=== PATIENT | male | born 1960 | race Caucasian/White ===

== ENCOUNTER → 2016-12-13 12:32 | Outpatient (CLI) | payer MEDICARE, MEDICAID ==
[2016-03-26 08:36] VITALS: BMI 22.5
[~2016-12-13 12:32] MED LIST: CELEXA20 MG PO; GLUCOPHAGE500 MG PO; HYDROCODONE-APA1 TAB PO; LIBRAX CAPSULE1 CAP PO; NEXIUM40 MG PO; PANCREASE PO; PANCREAZE DR 41 EACH PO; PRILOSEC20 MG PO; ULTRAM50 MG PO; ZENPEP DR 5,001 EACH PO; ZOFRAN ODT4 MG/UDTAB PO
== END | disposition home or self-care (01) ==
LOC: D.RAD 09:30 → D.MRI 10:30 → D.RAD 12:32
DX: S43.421A Sprain of right rotator cuff capsule, initial encounter (principal)

== ENCOUNTER → 2016-12-16 16:23 | Outpatient (CLI) | payer MEDICARE, MEDICAID ==
[2016-03-26 08:36] VITALS: BMI 22.5
[2016-12-16 18:10] LABS: HEMOGLOBIN A1C 5.8 % (4.8-6.0)
== END | disposition home or self-care (01) ==
LOC: D.LABREF 16:23
PROVIDERS: Orthopaedic Surgery
DX: M19.011 Primary osteoarthritis, right shoulder (principal); E11.9 Type 2 diabetes mellitus without complications

== ENCOUNTER 2016-12-28 05:17 | Day surgery (SDC) | payer MEDICARE, MEDICAID ==
[2016-03-26 08:36] VITALS: BMI 22.5
[2016-12-27 15:34] LABS: APPEARANCE CLEAR (CLEAR); BILIRUBIN NEGATIVE (NEGATIVE); COLOR DK YELLOW (YELLOW); GLUCOSE NEGATIVE (NEGATIVE); KETONE NEGATIVE (NEGATIVE); LEUKOCYTE ESTERASE NEGATIVE (NEGATIVE); NITRITE NEGATIVE (NEGATIVE); PROTEIN TRACE mg/dL (NEGATIVE); UROBILINOGEN NORMAL (NORMAL)
[2016-12-27 15:39] LABS: HEMATOCRIT 42.3 % (42.0-54.0); HEMOGLOBIN 14.4 g/dL (13.5-17.5); MCH 31.2 pg (26.0-34.0); MCV 91.6 fL (80.0-100.0); MEAN PLATELET VOLUME 10.9 fL (7.4-10.4); PLATELET COUNT 306 10x3/uL (130-400); RBC 4.62 10x6/uL (4.20-6.10); RDW 13.1 % (11.5-14.5); WBC 20.2 10x3/uL (4.8-10.8)
[2016-12-27 15:41] LABS: INR 1.09 (0.85-1.17); PROTIME 13.9 SECONDS (11.6-15.0)
[2016-12-27 15:52] LABS: CALC OSMOLALITY 265 mosm/kg (275-300); CALCIUM 8.3 mg/dL (8.5-10.1); CARBON DIOXIDE 29.9 mmol/L (21.0-32.0); CHLORIDE - SERUM 98 mmol/L (98-107); GLUCOSE 104 mg/dL (74-106); POTASSIUM - SERUM 3.2 mmol/L (3.5-5.1); SODIUM 134 mmol/L (136-145); UREA NITROGEN 8 mg/dL (7-18); eGFR NON AFRICAN AMERICAN 82 mL/min (90-120)
[2016-12-27 16:01] LABS: EOSINOPHILS 2 % (0-7); LYMPHOCYTES 21 % (15-50); MONOCYTES 8 % (2-11); NEUTROPHILS 69 % (40-80); PLATELET ESTIMATE NORMAL
--- NOTE | 2016-12-28 10:23 | NUR ---
DR HAMILTON NOTIFIED OF PATIENT'S WBC COUNT, NO NEW ORDERS RECEIVED, DR HAMILTON STATES HE WILL COME SEE PATIENT
[2016-12-28 10:56] LABS: BASOPHILS 0.1 % (0-2); EOSINOPHILS 1.1 % (0-7); HEMATOCRIT 39.6 % (42.0-54.0); HEMOGLOBIN 13.5 g/dL (13.5-17.5); IMMATURE GRANULOCYTES 0.4 % (0-5); LYMPHOCYTES 27.7 % (15-50); MCHC 34.1 g/dL (31.0-37.0); MCV 90.8 fL (80.0-100.0); MEAN PLATELET VOLUME 11.1 fL (7.4-10.4); MONOCYTES 5.6 % (2-11); NEUTROPHILS 65.1 % (40-80); PLATELET COUNT 275 10x3/uL (130-400); RBC 4.36 10x6/uL (4.20-6.10); RDW 13.2 % (11.5-14.5)
[2016-12-28 11:01] LABS: WBC 11.3 10x3/uL (4.8-10.8)
--- NOTE | 2016-12-28 12:04 | NUR ---
1110-DR HAMILTON HERE, ADDITIONAL ORDERS RECD. 1125-URINE SPECIMENT COLLECTED FOR UA. 1130-DISCHARGED AMBULATORY.
[2016-12-28 12:09] LABS: ERYTHROCYTE SEDIMENTATION RATE 6 mm/hr (0-20)
== END 2016-12-28 11:30 | disposition home or self-care (01) ==
LOC: D.OPS 05:17 → D.SDCHOLD 05:17 → EDSTATUS 10:15 → D.SDCHOLD 10:15 → D.OPS 11:30 → D.SDCHOLD 12:30
PROVIDERS: Orthopaedic Surgery
DX: M75.121 Complete rotator cuff tear or rupture of right shoulder, not specified as traumatic (principal); M19.011 Primary osteoarthritis, right shoulder; Z01.810 Encounter for preprocedural cardiovascular examination; Z01.811 Encounter for preprocedural respiratory examination; Z01.812 Encounter for preprocedural laboratory examination; Z53.9 Procedure and treatment not carried out, unspecified reason

== ENCOUNTER 2017-01-18 05:14 | Inpatient (IN) | payer MEDICARE, MEDICAID ==
[2017-01-14 10:54] LABS: BASOPHILS 0.2 % (0-2); EOSINOPHILS 1.6 % (0-7); HEMATOCRIT 41.6 % (42.0-54.0); IMMATURE GRANULOCYTES 0.2 % (0-5); LYMPHOCYTES 17.6 % (15-50); MCH 31.3 pg (26.0-34.0); MCHC 33.7 g/dL (31.0-37.0); MCV 92.9 fL (80.0-100.0); MEAN PLATELET VOLUME 11.5 fL (7.4-10.4); MONOCYTES 6.6 % (2-11); NEUTROPHILS 73.8 % (40-80); PLATELET COUNT 243 10x3/uL (130-400); RBC 4.48 10x6/uL (4.20-6.10); RDW 13.6 % (11.5-14.5); WBC 10.3 10x3/uL (4.8-10.8)
[2017-01-14 11:02] LABS: APTT 45.8 SECONDS (22.8-39.4); INR 1.01 (0.85-1.17); PROTIME 13.2 SECONDS (11.6-15.0)
[2017-01-14 11:04] LABS: CALC OSMOLALITY 269 mosm/kg (275-300); CALCIUM 8.6 mg/dL (8.5-10.1); CARBON DIOXIDE 27.4 mmol/L (21.0-32.0); CHLORIDE - SERUM 101 mmol/L (98-107); GLUCOSE 98 mg/dL (74-106); SODIUM 136 mmol/L (136-145); UREA NITROGEN 6 mg/dL (7-18); eGFR NON AFRICAN AMERICAN 82 mL/min (90-120)
[2017-01-14 11:10] LABS: APPEARANCE CLEAR (CLEAR); BILIRUBIN NEGATIVE (NEGATIVE); COLOR YELLOW (YELLOW); GLUCOSE NEGATIVE (NEGATIVE); KETONE NEGATIVE (NEGATIVE); LEUKOCYTE ESTERASE NEGATIVE (NEGATIVE); NITRITE NEGATIVE (NEGATIVE); PROTEIN NEGATIVE (NEGATIVE); SPECIFIC GRAVITY 1.015 (1.005-1.020); UROBILINOGEN NORMAL (NORMAL)
[2017-01-18] VITALS (9 sets, daily range): BP systolic 86–130; BP diastolic 42–69; Ht 172.7 cm; Wt 70.9 kg
[~2017-01-18] VITALS: Ht 172.7 cm; Wt 70.9 kg
--- NOTE | 2017-01-18 14:00 | NUR ---
RECEIVED TO ROOM 2209 FROM PACU VIA BED. ALERT AND ORIENTED WITH CONTINUOUS BLOCK INFUSING TO RIGHT SHOULDER AND HOB AT 50 DEGREES. BED ALARM ON. INSTRUCTED PT ON USE OF INCENTIVE SPIROMETER. CALL LIGHT IN REACH AND FAMILY AT BEDSIDE. WILL CONTINUE WITH PLAN OF CARE.
--- NOTE | 2017-01-18 16:32 | NUR ---
SPOKE WITH DR KEY REGARDING PT'S BLOOD PRESSURE AT THIS TIME. HE SAID HE WOULD COME OVER AND CHECK ON PATIENT.
--- NOTE | 2017-01-18 16:42 | OP ---
PATIENT NAME: LORI ZARAGOZA MEDICAL RECORD: [id number] :58 LOCATION:[id number] ADMISSION DATE:01/18/17 SURGEON: JEFFREY HAMILTON DO DATE OF OPERATION: 01/18/2017 PROCEDURE PERFORMED: Right reverse total shoulder arthroplasty. PREOPERATIVE DIAGNOSES: Right shoulder rotator cuff arthropathy and right shoulder osteoarthritis. POSTOPERATIVE DIAGNOSES: Right shoulder rotator cuff arthropathy and right shoulder osteoarthritis. INDICATIONS: Mr. Zaragoza is a 56-year-old male that has had right shoulder pain for quite some time. He had an MRI and x-ray in November, which x-ray showed a high riding humerus and severe end-stage osteoarthritis with several osteophytes on the inferior humerus. He also had rotator cuff tears on the MRI and no strength whatsoever in forward flexion and abduction and he desired to get something done that would stop the pain. He said he needs to get back to using his right arm as he is right handed. He was informed of the risks and benefits of this procedure and we had him sign a few weeks ago; however, he had a high white count. He does have chronic pancreas problems, so this surgery was canceled, we then put back on for today once he is cleared by his primary care for the surgery. SURGEON: Jeffrey Hamilton DO. AGRICULTURAL RESEARCH TECHNOLOGIST: Nikki Tran, advanced nurse practitioner. DESCRIPTION OF PROCEDURE: The patient was given a block in the preoperative area by anesthesia and brought back, placed in supine position, given general anesthetic and given 900 mg of clindamycin preoperatively. A timeout was performed and all parties were in agreement with the correct side, site and patient and he had been placed up in the beach chair position, approximately 40 degrees bended at the waist, well-padded of the bony prominences and the right arm was prepped and draped. Incision was marked out and then Ioban was placed around circumferentially, the drape in the axilla as well for coverage. The deltopectoral incision was then made through the skin with a 10-blade and then the plasma blade was used to cut down to the deltopectoral interval itself. The cephalic vein was encountered and taken laterally. The clavipectoral fascia was then incised and opened up. The pectoralis major was then released from the proximal centimeter off the humerus and the bicep tendon was tenodesed at that site. Bicep tendon was then cut and the bicipital groove was followed up into the glenohumeral joint. The CA ligament was released and the rotator interval was opened up as well. The humerus was then exposed. The adhesions of the deltoid were removed with a Fitzgerald and a Brown retractor was placed down the deltoid. Severe osteoarthritis was encountered and several large osteophytes were removed off the inferior aspect of the humeral head. The humerus was then cut as an intramedullary guide was used for the cut and the humerus was subluxed posteriorly. The glenoid was then exposed and after the subscapularis was taken off humerus first prior to the humerus being exposed and cut, the glenoid was completely exposed after the humerus was cut and a central pin was placed and then the reamer was done on the glenoid and the half-garrett over-reamer was then used as well. A #25 baseplate was then drilled for and entered into the glenoid. The superior screw was also placed of a 26 in length locking screw, 38 OPERATIVE REPORT [id number] LORI ZARAGOZA screw was used inferiorly, both having very good purchase. The glenosphere was chosen with a 36 lateralized glenosphere, was then put in place. Humerus was then prepped up to a 6 stem and a high offset with a 6 poly was used and trialed, this was done and this was seen to be correct trialed use. The conjoint tendon was not too tight and the shoulder was thoroughly irrigated and the actual implant was used and placed and then the shoulder was reduced, seemed to have very good motion. Abduction of 94 and flexion to 110 and external rotation to 60 degrees approximately, almost 90 degrees in the abducted position. Once this was done, the deltopectoral interval was closed using a #1 Vicryl with [id number] sutures and then the skin was closed with 2-0 Vicryl in an inverted interrupted fashion and the Prineo Dermabond glue. A grid was placed over the skin and then the glue itself was placed on the grid for skin closure. Estimated blood loss is 100 mL. The patient was awakened in stable condition and taken to recovery and placed in a sling with a pillow prior to that. TRANSINT:[id number] Voice Confirmation ID: [id number] DOCUMENT ID: [id number] JEFFREY HAMILTON DO at 1642 CC: [id number] DICTATION DATE: 01/18/17 1305 FORM RAISER: 01/18/17 1408 ADM IN [facility] [address] [id number]
[2017-01-19 00:20] VITALS: BP 92/53
[2017-01-19 04:00] VITALS: BP 110/71
[2017-01-19 06:21] LABS: BASOPHILS 0 % (0-2); EOSINOPHILS 3.3 % (0-7); HEMATOCRIT 34.3 % (42.0-54.0); HEMOGLOBIN 11.4 g/dL (13.5-17.5); IMMATURE GRANULOCYTES 0.1 % (0-5); LYMPHOCYTES 27.9 % (15-50); MCH 30.7 pg (26.0-34.0); MCHC 33.2 g/dL (31.0-37.0); MCV 92.5 fL (80.0-100.0); MEAN PLATELET VOLUME 11.7 fL (7.4-10.4); MONOCYTES 7.1 % (2-11); NEUTROPHILS 61.6 % (40-80); PLATELET COUNT 208 10x3/uL (130-400); RBC 3.71 10x6/uL (4.20-6.10); RDW 13.6 % (11.5-14.5); WBC 6.7 10x3/uL (4.8-10.8)
[2017-01-19 06:59] LABS: ALBUMIN 2.8 g/dL (3.4-5.0); ALKALINE PHOSPHATASE 68 U/L (46-116); ALT (SGPT) 13 U/L (10-68); CALC OSMOLALITY 275 mosm/kg (275-300); CALCIUM 7.7 mg/dL (8.5-10.1); CARBON DIOXIDE 22.8 mmol/L (21.0-32.0); CHLORIDE - SERUM 106 mmol/L (98-107); CREATININE - SERUM 0.8 mg/dL (0.6-1.3); GLUCOSE 106 mg/dL (74-106); POTASSIUM - SERUM 3.8 mmol/L (3.5-5.1); SODIUM 139 mmol/L (136-145); UREA NITROGEN 8 mg/dL (7-18); eGFR NON AFRICAN AMERICAN > 90 mL/min (90-120)
--- NOTE | 2017-01-19 07:00 | NUR ---
PATIENT RECEIVED IN MID SHOOK POSITION ALERT AND RESTING QUIETLY. RESPIRATIONS EVEN AND UNLABORED. SIDE RAILS UP X2. BED IN LOW POSITION. CALL LIGHT IN REACH. FAMILY PRESENT.
--- NOTE | 2017-01-19 08:03 | NUR ---
PATIENT ALERT IN BED VISITING WITH GUESTS. NO SIGNS OF DISTRESS NOTED. SCHEDULED MEDICATION ADMINISTERED. C/O PAIN 12/23. OXY IR ADMINISTERED PER PRN ORDER. NO FURTHER NEEDS VOICED. BED IN LOW POSITION. SIDE RAILS UP X2. CALL LIGHT IN REACH.
[2017-01-19 08:06] VITALS: BP 114/63
--- NOTE | 2017-01-19 10:15 | NUR ---
SITTING UP ON SIDE OF BED ALERT. RATES PAIN 5/10. DENIES NEEDS. BED IN LOW POSITION. CALL LIGHT IN REACH.
--- NOTE | 2017-01-19 11:05 | NUR ---
Patient Name: LORI ZARAGOZA Admission Status: Elective Accout number: [id number] Admission Date: 01-18-2017 : 1960 Admission Diagnosis: Attending: JEFFREY HAMILTON Current LOS: 1 Anticipated DC Date: Planned Disposition: Home Primary Insurance: [employer] ADV Discharge Planning Comments: CM met with patient to assess discharge planning needs. Patients parents are in the room at bedside. Patient states that he lives home alone independently. He does not have any medical equipment. 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 He does not think he will need any equipment at home. CM will continue to follow and assist with discharge planning needs. [facility] ([phone]) Laboratory Chemical Assistant: Dorota Tinsley * Is the patient Alert and Oriented? Yes 0 * PCP [facility] 0 * [facility] * Preadmission Environment Home Alone 0 * ADLs Independent 0 * Equipment None 0 * List name and contact numbers for known caregivers / representatives who currently or will assist patient after discharge: DIMAS BROWER [phone] 0 * Community resources currently utilized None 0 * Additional services required to return to the preadmission environment? No 0 * Can the patient safely return to the preadmission environment? Yes 0 * Has this patient been hospitalized within the prior 30 days at any hospital? No 0 Grand Total: 0
[2017-01-19 12:25] VITALS: BP 119/72
--- NOTE | 2017-01-19 13:40 | NUR ---
IV TO LEFT AC SALINE LOCKED. IV TO LEFT HAND FOUND TO BE OUT WITH CATH TIP INTACT. DENIES NEEDS. BED IN LOW POSITION. CALL LIGHT IN REACH.
[2017-01-19 15:54] VITALS: BP 111/75
--- NOTE | 2017-01-19 16:30 | NUR ---
SITTING UP ON SIDE OF BED ALERT. NO SIGNS OF DISTRESS NOTED. ACCU CHECK 104. SCHEDULED MEDICATION ADMINSITERED. C/O PAIN 11/22. OXY IR PER PRN ORDER. NO FURTHER NEEDS VOICED. BED IN LOW POSITION. CALL LIGHT IN REACH.
[2017-01-19 19:00] VITALS: BP 118/73
[2017-01-20 04:00] VITALS: BP 122/78
[2017-01-20 05:33] LABS: BASOPHILS 0.1 % (0-2); EOSINOPHILS 2.3 % (0-7); HEMOGLOBIN 12.1 g/dL (13.5-17.5); IMMATURE GRANULOCYTES 0.2 % (0-5); LYMPHOCYTES 22.8 % (15-50); MCH 30.6 pg (26.0-34.0); MCHC 33.6 g/dL (31.0-37.0); MCV 90.9 fL (80.0-100.0); MEAN PLATELET VOLUME 11.9 fL (7.4-10.4); MONOCYTES 8.8 % (2-11); NEUTROPHILS 65.8 % (40-80); PLATELET COUNT 210 10x3/uL (130-400); RBC 3.96 10x6/uL (4.20-6.10); RDW 13.3 % (11.5-14.5)
[2017-01-20 05:51] LABS: WBC 9.2 10x3/uL (4.8-10.8)
[2017-01-20 05:53] LABS: ALBUMIN 2.8 g/dL (3.4-5.0); ALKALINE PHOSPHATASE 70 U/L (46-116); ALT (SGPT) 12 U/L (10-68); BILIRUBIN - TOTAL 0.94 mg/dL (0.2-1.3); CALC OSMOLALITY 274 mosm/kg (275-300); CARBON DIOXIDE 23.6 mmol/L (21.0-32.0); CHLORIDE - SERUM 104 mmol/L (98-107); GLUCOSE 110 mg/dL (74-106); POTASSIUM - SERUM 3.8 mmol/L (3.5-5.1); PROTEIN - SERUM 6.6 g/dL (6.4-8.2); SODIUM 138 mmol/L (136-145); UREA NITROGEN 6 mg/dL (7-18); eGFR NON AFRICAN AMERICAN 82 mL/min (90-120)
--- NOTE | 2017-01-20 07:15 | NUR ---
PATIENT RECEIVED SITTING UP ON SIDE OF BED ALERT. NO SIGNS OF DISTRESS NOTED. RATES PAIN 4/10. DENIES NEEDS. BED IN LOW POSITION. CALL LIGHT IN REACH.
[2017-01-20 08:06] VITALS: BP 121/71
[2017-01-20] MEDS ORDERED: OXYCODONE HCL5 MG PO (08:10)
[2017-01-20] MEDS ORDERED: ATARAX 25 MG TA25 MG PO (08:10)
[2017-01-20] MEDS ORDERED: DURICEF500 MG PO (08:11)
--- NOTE | 2017-01-20 08:25 | NUR ---
SITTING UP ON SIDE OF BED ALERT. NO SIGNS OF DISTRESS NOTED. RATES PAIN 4/10. SCHEDULED MEDICATION AND PRN OXY IR ADMINISTERED. DENIES NEEDS. ANTICIPATING D/C HOME. BED IN LOW POSITION. CALL LIGHT IN REACH.
--- NOTE | 2017-01-20 09:00 | NUR ---
SITTING UP ON SIDE OF BED. IV TO LEFT FOREARM D/C WITH CATH TIP INTACT. OPSITE POST OP DRESSING APPLIED TO RIGHT SHOULDER INCISION. BED IN LOW POSITION. CALL LIGHT IN REACH. DENIES NEEDS.
--- NOTE | 2017-01-20 10:30 | NUR ---
D/C TEACHING, PRESCRIPTIONS AND DRESSINGS FOR WOUND CARE PROVIDED. STATES UNDERSTANDING. DENIES QUESTIONS.
--- NOTE | 2017-01-20 10:33 | NUR ---
PATIENT D/C HOME WITH FAMILY. TRANSFERRED DOWNSTAIRS VIA WHEELCHAIR WITH VOLUNTEER.
== END 2017-01-20 10:34 | disposition home or self-care (01) | DRG 483 ==
LOC: D.MS 05:14 → D.SDCHOLD 05:14 → D.MS 13:42
PROVIDERS: Emergency Medicine; ADMIT Orthopaedic Surgery
PROC: 0RRJ00Z Replacement of Right Shoulder Joint with Reverse Ball and Socket Synthetic Substitute, Open Approach (ICD-10-PCS; principal; 2017-01-18 09:30)
DX: M19.011 Primary osteoarthritis, right shoulder (principal); F17.203 Nicotine dependence unspecified, with withdrawal; E11.65 Type 2 diabetes mellitus with hyperglycemia; D50.0 Iron deficiency anemia secondary to blood loss (chronic); K21.9 Gastro-esophageal reflux disease without esophagitis; J44.9 Chronic obstructive pulmonary disease, unspecified; Z79.84 Long term (current) use of oral hypoglycemic drugs

== ENCOUNTER 2017-09-27 11:54 | Emergency (ER) | payer MEDICARE, MEDICAID ==
[2017-01-18 14:07] VITALS: BMI 23.7
[~2017-09-27 11:54] MED LIST changes: +ATARAX 25 MG TA25 MG PO; +DURICEF500 MG PO; +OXYCODONE HCL5 MG PO
[2017-09-27 12:23] LABS: BASOPHILS 0.1 % (0-2); EOSINOPHILS 0.1 % (0-7); HEMATOCRIT 44.2 % (42.0-54.0); HEMOGLOBIN 15.2 g/dL (13.5-17.5); IMMATURE GRANULOCYTES 0.3 % (0-5); LYMPHOCYTES 20.8 % (15-50); MCH 31.3 pg (26.0-34.0); MCHC 34.4 g/dL (31.0-37.0); MCV 91.1 fL (80.0-100.0); MEAN PLATELET VOLUME 12.3 fL (7.4-10.4); MONOCYTES 5.2 % (2-11); NEUTROPHILS 73.5 % (40-80); PLATELET COUNT 251 10x3/uL (130-400); RBC 4.85 10x6/uL (4.20-6.10); RDW 13.3 % (11.5-14.5); WBC 10.4 10x3/uL (4.8-10.8)
[2017-09-27 12:54] LABS: ALBUMIN 3.8 g/dL (3.4-5.0); ALKALINE PHOSPHATASE 71 U/L (46-116); ALT (SGPT) 14 U/L (10-68); AMYLASE - SERUM 93 U/L (25-115); BILIRUBIN - TOTAL 0.34 mg/dL (0.2-1.3); CALC OSMOLALITY 274 mosm/kg (275-300); CALCIUM 8.7 mg/dL (8.5-10.1); CARBON DIOXIDE 27.9 mmol/L (21.0-32.0); CHLORIDE - SERUM 102 mmol/L (98-107); CREATININE - SERUM 0.9 mg/dL (0.6-1.3); GLUCOSE 108 mg/dL (74-106); LIPASE 157 U/L (73-393); POTASSIUM - SERUM 3.7 mmol/L (3.5-5.1); PROTEIN - SERUM 7.6 g/dL (6.4-8.2); SODIUM 138 mmol/L (136-145); UREA NITROGEN 8 mg/dL (7-18); eGFR NON AFRICAN AMERICAN > 90 mL/min (90-120)
[2017-09-27 14:41] LABS: APPEARANCE CLEAR (CLEAR); BILIRUBIN NEGATIVE (NEGATIVE); COLOR STRAW (YELLOW); GLUCOSE NEGATIVE (NEGATIVE); KETONE NEGATIVE (NEGATIVE); NITRITE NEGATIVE (NEGATIVE); PROTEIN NEGATIVE (NEGATIVE); SPECIFIC GRAVITY 1.005 (1.005-1.020); UROBILINOGEN NORMAL (NORMAL)
== END 2017-09-27 14:23 | disposition home or self-care (01) ==
LOC: D.ER 11:54
PROVIDERS: Emergency Medicine
DX: R10.9 Unspecified abdominal pain (principal); K21.9 Gastro-esophageal reflux disease without esophagitis; F17.200 Nicotine dependence, unspecified, uncomplicated

== ENCOUNTER 2018-10-14 11:05 | Emergency (ER) | payer MEDICARE, MEDICAID ==
[2018-10-14 11:20] VITALS: BMI 25.9
[2018-10-14] MEDS ORDERED: ULTRAM50 MG PO (11:22)
[2018-10-14] MEDS ORDERED: ZENPEP PO (11:22)
[2018-10-14 12:01] LABS: BASOPHILS 0.1 % (0-2); EOSINOPHILS 0.2 % (0-7); HEMATOCRIT 44.9 % (42.0-54.0); HEMOGLOBIN 15.4 g/dL (13.5-17.5); IMMATURE GRANULOCYTES 0.3 % (0-5); LYMPHOCYTES 23.2 % (15-50); MCH 30.9 pg (26.0-34.0); MCHC 34.3 g/dL (31.0-37.0); MONOCYTES 5.5 % (2-11); NEUTROPHILS 70.7 % (40-80); PLATELET COUNT 235 10x3/uL (130-400); RBC 4.99 10x6/uL (4.20-6.10); RDW 13.2 % (11.5-14.5)
[2018-10-14 12:10] LABS: ALBUMIN 3.8 g/dL (3.4-5.0); ALKALINE PHOSPHATASE 65 U/L (46-116); ALT (SGPT) 18 U/L (10-68); BILIRUBIN - TOTAL 0.77 mg/dL (0.2-1.3); CALC OSMOLALITY 272 mosm/kg (275-300); CALCIUM 8.3 mg/dL (8.5-10.1); CARBON DIOXIDE 28.3 mmol/L (21.0-32.0); CHLORIDE - SERUM 99 mmol/L (98-107); GLUCOSE 126 mg/dL (74-106); POTASSIUM - SERUM 3.5 mmol/L (3.5-5.1); PROTEIN - SERUM 7.4 g/dL (6.4-8.2); SODIUM 135 mmol/L (136-145); UREA NITROGEN 15 mg/dL (7-18); eGFR NON AFRICAN AMERICAN 81 mL/min (90-120)
[2018-10-14 12:12] LABS: AMYLASE - SERUM 64 U/L (25-115); LIPASE 120 U/L (73-393)
[2018-10-14 12:13] LABS: TROPONIN-I < 0.017 ng/mL (0.000-0.060)
[2018-10-14 14:35] LABS: APPEARANCE CLEAR (CLEAR); BILIRUBIN NEGATIVE (NEGATIVE); COLOR YELLOW (YELLOW); GLUCOSE NEGATIVE (NEGATIVE); KETONE NEGATIVE (NEGATIVE); NITRITE NEGATIVE (NEGATIVE); PROTEIN NEGATIVE (NEGATIVE); SPECIFIC GRAVITY 1.005 (1.005-1.020); UROBILINOGEN NORMAL (NORMAL)
[2018-10-14] MEDS ORDERED: BENTYL 20 MG TA20 MG PO (14:41)
[2018-10-14] MEDS ORDERED: ZOFRAN ODT4 MG/UDTAB PO (14:41)
[2018-10-14 15:18] VITALS: BP 127/81
== END 2018-10-14 15:18 | disposition home or self-care (01) ==
LOC: D.ER 11:05
PROVIDERS: Family Medicine
DX: K52.9 Noninfective gastroenteritis and colitis, unspecified (principal)